=== PATIENT | male | born 1995 | race Caucasian/White ===

== ENCOUNTER 2022-05-07 20:10 | Observation (INO) | payer OTHER, SELFPAY ==
[2022-05-07 20:11] VITALS: BP 128/78; PULSE 73; RESP 11; TEMP 36.5; O2SAT 100; BMI 24.9
--- NOTE | 2022-05-07 20:26 | CT_ITS ---
STUDY: CT BRAIN WITHOUT CONTRAST REASON FOR EXAM: Male, 27 years old. Vertigo. Facial numbness. Numbness in the hands tonight. RADIATION DOSAGE (If Supplied By Facility): CTDIvol = ( 44.99 ) mGy, DLP = ( 846.73 ) mGycm TECHNIQUE: Transaxial CT imaging of the brain was performed without administration of intravenous contrast material. Individualized dose optimization techniques were used for this CT. COMPARISON: No relevant priors. FINDINGS: Normal soft tissue structures. Normal calvarium. Normal size ventricles and extra-axial spaces for the patient''s age. Normal white matter tracts of the cerebral hemispheres. Normal basal ganglia and thalami. Normal brainstem. Normal cerebellum. There is no intracranial hemorrhage. There are no findings of an acute ischemic infarction. Normal visualized paranasal sinuses. CT/Brain/Head without Contrast IMPRESSION: Normal unenhanced CT scan of the brain. If there is continued concern for acute stroke, MRI is recommended. [facility] was utilized to assist in identifying pertinent positive findings in this case. Electronically Signed: Alexis Birch DO at 20:54 EDT ,
--- NOTE | 2022-05-07 20:28 | EX.ED.DYSGE1 ---
HPI History of Present Illness Chief Complaint: Dizziness Informant: patient and spouse/S.O. Narrative Narrative: Patient evidently was walking around. He got a funny feeling. He started to feel lightheaded and mild dizziness. He did feel some spinning sensation. No chest pain or palpitations. He had mild nausea but never vomited. He states he laid down on the ground. He and his significant other stated he started real heavy fast breathing. This caused numbness in both hands and he actually had cramping in his hands. They were able to get him to calm down and it is gotten much better. He has minimal nausea now but no other symptoms. No visual complaints. No headache. No trauma. He has no history of anxiety but his significant other thought he might be having a panic attack by what she saw. But he has not had this before. He has not taken any medicines chemicals or different foods. He has been eating and drinking. He is on no medicines No allergies No history of chronic medical conditions PFSH PFS Medical History no medical history Home Medications meclizine 25 mg tablet 25 mg PO TID PRN dizziness #20 tabs 05/07/22 [Rx Last Taken Unknown] Allergy/AdvReac Type Severity Reaction Status Date / Time No Known Allergies Allergy Verified 05/07/22 20:16 Surgical History no surgical history Social History Smoking Status: Never smoker ROS ROS ED Constitutional Constitutional ED: Denies chills or fever(s) Eyes Eyes: Denies blurry vision, change in vision or diplopia ENT ENT ED: Denies rhinorrhea or sore throat Cardiovascular Cardiovascular: Denies chest pain, palpitations or racing heartbeat Respiratory/Chest Respiratory/Chest: Denies cough or dyspnea Gastrointestinal Gastrointestinal: Reports nausea; Denies abdominal pain or vomiting Genitourinary Genitourinary ED: Denies dysuria Musculoskeletal Musculoskeletal: Denies back pain or neck pain Integumentary Denies rash Neurologic Neurologic: Reports paresthesias; Denies headache(s) or weakness Psychiatric Psychiatric: Denies anxiety Endocrine Endocrinology: Denies polydipsia or polyuria Hematologic/Lymphatic Hematologic/Lymphatic: Denies easy bleeding or easy bruising Allergic/Immunologic Allergic/Immunologic ED: Denies urticaria EXAM Physical Exam Narrative Exam Narrative: Patient awake alert no acute distress. He is lying comfortably on the bed. He carries on normal conversation. HEENT shows mucous membranes do look reasonably moist. There is no facial trauma. No tenderness. Eyes have normal range of motion. No disconjugate gaze. No indication of positive Hallpike. Pupils are normal about 3 mm and reactive. Neck is supple. No stridor. No JVD. No meningismus. Lungs are completely clear and he takes good deep breaths without pain. No tenderness. Saturations are normal at 100% on room air showing no hypoxia. Heart is regular without murmur gallop rub or muffled tones. Peripheral pulses x4 are normal. Abdomen is soft and completely nontender. shows no CVA or suprapubic tenderness Extremities show normal pulses and coloration. No tenderness or asymmetry. Neurologically he is awake alert appropriate no acute distress. His NIH is 0. His strength coordination is normal. No visual cut. Normal facial strength. Const Vital Signs: 05/07/22 20:11 05/07/22 20:14 05/07/22 22:00 Temperature 97.7 F L Temperature Source Temporal Pulse Rate 73 68 Respiratory Rate 11 L 17 Respiratory Effort Normal Non-Labored Blood Pressure 128/78 H Blood Pressure Mean 94 Pulse Ox 100 100 Oxygen Delivery Method Room Air 05/07/22 22:01 05/07/22 23:01 Temperature Temperature Source Pulse Rate 82 70 Respiratory Rate 18 18 Respiratory Effort Blood Pressure 131/82 H 131/86 H Blood Pressure Mean 95 98 Pulse Ox 100 99 Oxygen Delivery Method MDM MDM MDM Narrative Medical decision making narrative: My independent interpretation the patient's CT of the head shows no acute process. Final reading is similar. Patient's blood work showed normal white count hemoglobin and platelets. Electrolytes did show decreased potassium. This was replaced orally. I think this is likely due to his hyperventilation episode. We checked the patient again. He feels better. But when he sits up he still gets a little bit of dizziness. He is not nauseated anymore. I did a David-Hallpike. When I have him tilt his head back and look to the right I lay him from a sitting to a laying position. This really did not produce any symptoms. Nor was there any nystagmus. I then sat him up. We let him sit for a moment. I had him tilt his head back into the left. He was not dizzy. When I laid him back he got a little bit of forward Garcia's nystagmus for about 4-5 beats, was vertiginous and then the symptoms resolved. I believe this is consistent with peripheral vertigo. I will give him some meclizine and he will be rechecked. About a half an hour after meclizine, patient was able to get up and side of the bed. He had some vertigo but it was not quite as bad. We will let him rest and try this again. He still not having any focal deficit. His symptoms exam risk factor all point to peripheral source of this. We got the patient up on the side of the bed again. You could see he had a little bit of rocking motion. He states that he does feel vertiginous. He has a true sense of spinning. Its not as bad as it was originally but it is still bad and it really has not improved from the last time. We did let him sit on the edge of the bed. He stated he started to feel nauseated. He was not syncopal or presyncopal. His heart rate was about 90 normal sinus rhythm with no abnormalities. He started to look a little bit pale. We laid him back. We will get him something for nausea. Lab Data Attestation: I reviewed the patient's lab results. Labs: Laboratory Results - last 24 hr 05/07/22 05/07/22 19:40 19:40 WBC 5.1 RBC 4.93 Hgb 15.8 Hct 42.7 MCV 86.6 MCH 32.0 MCHC 37.0 H RDW Std Deviation 36.5 RDW Coeff of Tierney 11.5 L Plt Count 178 MPV 11.3 Immature Gran % (Auto) 0.400 Neut % (Auto) 35.6 L Lymph % (Auto) 51.9 H O'Brien % (Auto) 11.1 H Eos % (Auto) 0.6 Baso % (Auto) 0.4 Absolute Neuts (auto) 1.8 L Absolute Lymphs (auto) 2.62 Nucleated RBC % 0 Sodium 143 Potassium 2.8 L Chloride 107 Carbon Dioxide 28.0 Anion Gap 8 BUN 15 Creatinine 1.07 Estim Creat Clear Calc 107.07 Est GFR (MDRD) Af Amer 106 Est GFR (MDRD) Non-Af 88 BUN/Creatinine Ratio 14.0 Glucose 103 Calcium 9.5 Radiography Diagnostic Testing: Clinical Impression(s) from Imaging Studies Brain CT 05/07/22 20:26 IMPRESSION: Normal unenhanced CT scan of the brain. If there is continued concern for acute stroke, MRI is recommended. [facility] was utilized to assist in identifying pertinent positive findings in this case. Electronically Signed: Alexis Birch at 20:54 EDT Reading Location ID and State: [address] [place] [address] Tel [phone], Service support , EKG Initial EKG: Comments: Independent interpretation of the patient's EKG done for vertigo and lightheadedness showing normal sinus rhythm with slight sinus arrhythmia which is typical in the young healthy heart. No ventricular ectopy. No acute ST elevation or depression. NC interval, QRS duration and QTc are normal. Management Discussion w/another healthcare provider: Hospitalist Discharge Plan Triage Chief Complaint: Dizziness ED Provider: Baron Dunn Dx/Rx/DC Orders Clinical Impression: Vertigo, Hyperventilation, Nausea Instructions: ED Vertigo, Unspecified Prescriptions: New meclizine 25 mg tablet 25 mg PO TID PRN (Reason: dizziness) Qty: 20 0RF Primary Care Provider: Care Physician,No Primary Referrals: NOT,DEFINED [Non-Staff] - Disposition Disposition: Acute Care Hospital [facility]
[2022-05-07] MEDS: Ondansetron 4 MG/2 ML Vial IV (20:31)
[2022-05-07] MEDS: 0.9% Normal Saline 1,000 ML 1000 ML IV (20:33)
[2022-05-07 20:45] LABS: Absolute Lymphocyte Count 2.62 X10^3/uL (0.83-4.51); Absolute Neutrophil Count 1.8 X10^3/uL (2.0-7.7); Basophil# 0.02 X10^3/uL; Basophil% 0.4 % (0-1); Eosinophil# 0.03 X10^3/uL; Eosinophils% 0.6 % (0-5); Hematocrit 42.7 % (40-54); Hemoglobin 15.8 g/dL (13.0-16.5); Lymphocyte # 2.62 X10^3/ul (0.83-4.51); Lymphocyte % 51.9 % (19-41); Mean Corpuscular Volume 86.6 fL (80-94); Mean Platelet Vol. 11.3 fl (6.2-12.0); Monocyte# 0.56 X10^3/uL; Monocyte% 11.1 % (0-10); NRBC Flagged by Analyzer 0 % (0-5); Neutrophil % 35.6 % (47-70); Platelet Count 178 K/mm3 (150-450); RBC Distribution Width CV 11.5 % (11.6-14.6); RBC Distribution Width SD 36.5 fl (35.1-43.9); Red Blood Count 4.93 M/mm3 (4.6-6.2); White Blood Count 5.1 K/mm3 (4.4-11.0)
[2022-05-07 21:03] LABS: Anion Gap 8 (5-15); BUN 15 mg/dL (7-18); Calcium,Total 9.5 mg/dL (8.5-10.1); Chloride 107 mmol/L (98-107); Creatinine, Serum 1.07 mg/dL (0.70-1.30); EST Glomerular Filtration Rate 88 mL/min (>60); Est Glom Filt Rate - Afr Amer 106 mL/min (>60); Estimated Creatinine Clearance 107.07 ml/min; Glucose 103 mg/dL (74-106); Potassium 2.8 mmol/L (3.5-5.1); Sodium Level 143 mmol/L (136-145)
[2022-05-07] MEDS: Potassium Chloride Oral Tablet 20 MEQ 40 MEQ PO (21:56)
[2022-05-07 22:00] VITALS: PULSE 68; RESP 17; O2SAT 100
[2022-05-07 22:01] VITALS: BP 131/82; PULSE 82; RESP 18; O2SAT 100
[2022-05-07] MEDS: Meclizine HCl 25 MG Tablet PO (22:54)
--- NOTE | 2022-05-07 22:59 | NURSING ---
Attempted to ambulate, pt was able to sit at side of bed, c/o dizziness. While sitting pt was wavering and felt he couldn't ambulate safely.
[2022-05-07 23:01] VITALS: BP 131/86; PULSE 70; RESP 18; O2SAT 99
[2022-05-08] VITALS (7 sets, daily range): BP systolic 109–122; BP diastolic 67–77; PULSE 65–130; RESP 16–18; TEMP 36.2–36.7; O2SAT 98–100; BMI 23.8
[2022-05-08] MEDS: diazePAM 2 MG Tablet PO ×4 (00:12→18:21)
[2022-05-08] MEDS: Ondansetron 4 MG/2 ML Vial IV (00:12)
--- NOTE | 2022-05-08 00:47 | HP.PCM_ITS ---
HPI - General General Date of Admission: 05/08/22 Date of Service: 05/08/22 Chief Complaint: Vertigo. HPI Narrative The patient is a 27 y/o M w/ no marked PMHx who presents to the [facility] ED on 05/08/22 with onset of lightheadedness and dizziness with a spinning sensation with associated nausea without emesis prompting him to lay on the ground with onset of tachypnea with eventual numbness in both his hands with eventual cramping and once he calmed down it seemed to improve with persistent nausea but no other recurrent symptoms nor any visual complaints or headache with a significant concern for panic attack but given the events prompted ED evaluation. In the ED patient per ED physician had no significant David-Hallpike findings but upon further testing demonstrated forward Garcia's nystagmus for approximately 4-5 beats with vertiginous symptoms consistent with peripheral vertigo. NIH stroke scale was 0. In the ED patient was administered oral potassium as well as trial of oral meclizine with reevaluation with some mild vertigo although abated from prior with no further focal deficits. Patient was reassessed again for possible discharge to home but had recurrent vertiginous symptoms with activity attempt with nausea. He has been recently working on his home. Reported carrying heavy items through the day. He notes when head toward the left he feels worse. He notes it started when he was initially bending over to set brushes down. Following recent Valium and Zofran patient does feel mildly improved and was able to get up with assistance to the bathroom. Upon further questioning he does report that prior he was not feeling well with congestion, headache, fevers but seem to improve. Work-up in the ED includ ed T97.7, heart rate 70, BP 120/71, respiratory rate 11, 100% on room air, CBC with WC 5.1, hemoglobin 15.8, platelet 178 with neutropenia, BMP with potassium 2.8 otherwise not marked appearing, CT brain with no acute intracranial findings, EKG with sinus rhythm with no acute evidence of ischemia. In the ED as noted patient ministered 1 L normal saline, potassium 40 mill equivalent p.o. x1, Zofran 4 mg IV x2, meclizine 25 mg p.o. x1 and most recently just prior to call for hospitalist admission Valium 2 mg p.o. x1. [facility] Medical History (Updated 05/08/22 @ 00:[address] Nusrat Pulido MD) No significant past medical history Medical History no medical history Allergy/AdvReac Type Severity Reaction Status Date / Time No Known Allergies Allergy Verified 05/07/22 20:16 other (Denies any marked maternal/paternal family history including HD, DM, CA.) Surgical History (Updated 05/08/22 @ 00:[address] Nusrat Pulido MD) No significant past surgical history Surgical History no surgical history Social History (Updated 05/08/22 @ 00:[address] Nusrat Pulido MD) household members: spouse Smoking Status: Never smoker alcohol intake: never substance use type: does not use ROS ROS Narrative Admission Review of Systems: CONSTITUTIONAL: No weight loss, fever, chills, + weakness or fatigue. HEENT: + Recent congestion, headache, rhinorrhea and sore throat currently resolved, now onset of vertiginous symptoms. Eyes: No visual loss, blurred vision, double vision or yellow sclerae. Ears, Nose, Throat: No hearing loss. SKIN: No rash or itching, lesions, wounds. CARDIOVASCULAR: No chest pain, chest pressure or chest discomfort, palpitations, edema, orthopnea, syncopal events. RESPIRATORY: No shortness of breath, cough or sputum, wheezing, hemoptysis. GASTROINTESTINAL: + anorexia, nausea without vomiting, No diarrhea, abdominal pain, melena, BRBPR. GENITOURINARY: No dysuria, frequency, urgency or retention. NEUROLOGICAL: + As noted prior week with headache/congestion symptoms, now resolved with onset Vertigo. No syncope, paralysis, ataxia, numbness or tingling in the extremities, focal weakness, change in bowel or bladder control, seizure. MUSCULOSKELETAL: No muscle, back pain, joint pain or stiffness. HEMATOLOGIC: No anemia, bleeding or bruising. LYMPHATICS: No enlarged nodes. No history of splenectomy. PSYCHIATRIC: No history of depression or anxiety. ENDOCRINOLOGIC: No reports of sweating, cold or heat intolerance. No polyuria or polydipsia. ALLERGIES: No history of asthma, hives, eczema or rhinitis. Vital Signs Vital Signs Vital Signs: 05/07/22 20:11 05/07/22 20:14 05/07/22 22:00 Temperature 97.7 F L Temperature Source Temporal Pulse Rate 73 68 Respiratory Rate 11 L 17 Respiratory Effort Normal Non-Labored Blood Pressure 128/78 H Blood Pressure Mean 94 Pulse Ox 100 100 Oxygen Delivery Method Room Air 05/07/22 22:01 05/07/22 23:01 Temperature Temperature Source Pulse Rate 82 70 Respiratory Rate 18 18 Respiratory Effort Blood Pressure 131/82 H 131/86 H Blood Pressure Mean 95 98 Pulse Ox 100 99 Oxygen Delivery Method Weight Weight: 173 lb 8.061 oz Body Mass Index (BMI) 24.9 Physical Exam Narrative Physical Examination: General: Awake, alert, oriented x 3 and cooperative, laying in the ED bed, fatigued, notes feeling somewhat improved, recently was able to with assistance walk to and from the bathroom Skin: Normal color, normal turgor, no icterus, no cyanosis. HEENT: AT/NC, EOMI, PERRLA, dry MM, no carotid bruits or JVD noted no visible reproduce nystagmus. Lungs: CTA bilaterally, moderate effort, mild decrease BL bases, no rales, ronchi or wheezing. Heart: Improved, currently regular rate and rhythm; no gallop, rub audible. Abdomen: Soft, NTTP, ND, normal BS, no HSM. Extremities: No cyanosis, clubbing, or edema. Neurological: Patient awake, alert, oriented as noted, cognitive function intact; pupils equally reactive to light and accommodation, cranial nerves II- XII grossly normal, moving all 4 extremities, no focal deficits, strength moderately to severely global decreased but improving, currently no reproducible nystagmus with positional changes but had been with primarily turning to the left Psychiatric: Affect appears fatigued, no acute evidence of depressive or anxiety feelings. Results Lab / Micro Data Result Diagrams: 05/07/22 19:40 05/07/22 19:40 Labs: Laboratory Results - last 24 hr 05/07/22 19:40: WBC 5.1, RBC 4.93, Hgb 15.8, Hct 42.7, MCV 86.6, MCH 32.0, MCHC 37.0 H, RDW Std Deviation 36.5, RDW Coeff of Tierney 11.5 L, Plt Count 178, MPV 11.3, Immature Gran % (Auto) 0.400, Neut % (Auto) 35.6 L, Lymph % (Auto) 51.9 H, Harmon % (Auto) 11.1 H, Eos % (Auto) 0.6, Baso % (Auto) 0.4, Absolute Neuts (auto) 1.8 L, Absolute Lymphs (auto) 2.62, Nucleated RBC % 0 05/07/22 19:40: Sodium 143, Potassium 2.8 L, Chloride 107, Carbon Dioxide 28.0, Anion Gap 8, BUN 15, Creatinine 1.07, Estim Creat Clear Calc 107.07, Est GFR (MDRD) Af Amer 106, Est GFR (MDRD) Non-Af 88, BUN/Creatinine Ratio 14.0, Glucose 103, Calcium 9.[address] 05/07/22 20:26 IMPRESSION: Normal unenhanced CT scan of the brain. If there is continued concern for acute stroke, MRI is recommended. [facility] was utilized to assist in identifying pertinent positive findings in this case. Electronically Signed: Alexis Birch DO at 20:54 EDT Reading Location ID and State: [address] [place] [address] Tel [phone], Service support , Assessment & Plan Assessment/Plan (1) Vertigo: PLAN: Plan The patient is a 27 y/o M w/ no marked PMHx who presents to the [facility] ED on 05/08/22 with onset of lightheadedness and dizziness with a spinning sensation with associated nausea without emesis prompting him to lay on the ground with onset of tachypnea with eventual numbness in both his hands with eventual cramping and once he calmed down it seemed to improve with persistent nausea but no other recurrent symptoms nor any visual complaints or headache with a significant concern for panic attack but given the events prompted ED evaluation. #1. Acute vertigo, suspected benign positional vertigo with suspected recent Acute Viral Syndrome: We will admit to medical surgical floor, maintain on fall precautions, although meclizine did have some improvement given ongoing symptoms will trial scheduled Valium, will continue to judiciously hydrate, as needed antiemetic, PT will be consulted for evaluation and vestibular therapy consideration, if symptoms are ongoing low threshold to obtain MRI of the brain to be cautious. Given recent viral type symptoms will request COVID PCR/respiratory viral panel given length of timeline since symptoms as suspect likely etiology for his current vertiginous symptoms. #2. Hypokalemia: Admission K+ 2.8, magnesium level request, supplementation given, repeat level in AM. #3. Neutropenia, unclear etiology, suspect related with recent acute viral syndrome: We will repeat CBC with differential in AM, unclear if this is chronic as no prior trending noted, COVID PCR requested. #4. DVT prophylaxis: Low risk. Admission Evaluation Time spent evaluating chart, patient history, patient evaluation, care planning and discussion with specialists: 55 minutes. Charges/Coding Visit Charges Inpatient E&M: 44495 Init Hosp L2
[2022-05-08 01:04] LABS: Amphetamine Urine VISTA NEGATIVE (<1000 ng/mL); Barbiturate Urine VISTA NEGATIVE (< 200 ng/mL); Benzodiazepine Urine VISTA NEGATIVE (< 200 ng/mL); Cocaine Urine VISTA NEGATIVE (< 300 ng/mL); Ecstacy Urine VISTA NEGATIVE (< 500 ng/mL); Methadone Urine VISTA NEGATIVE (< 300 ng/mL); PCP Urine VISTA NEGATIVE (< 25 ng/mL); THC Urine VISTA NEGATIVE (< 50 ng/mL); Vista UDS pH Range 7
[2022-05-08] MEDS: 0.9% Saline Lock 10 ML Syringe IV ×2 (02:15→08:18)
[2022-05-08] MEDS: 0.9% Normal Saline 1,000 ML 150 ML IV ×4 (02:16→20:38)
[2022-05-08 07:11] LABS: Absolute Lymphocyte Count 1.57 X10^3/uL (0.83-4.51); Absolute Neutrophil Count 2.7 X10^3/uL (2.0-7.7); Basophil# 0.01 X10^3/uL; Basophil% 0.2 % (0-1); Eosinophil# 0.02 X10^3/uL; Eosinophils% 0.4 % (0-5); Hematocrit 38.4 % (40-54); Hemoglobin 13.9 g/dL (13.0-16.5); Lymphocyte # 1.57 X10^3/ul (0.83-4.51); Lymphocyte % 32.9 % (19-41); Mean Corp Hgb Conc 36.2 g/dL (32-36); Mean Corpuscular Hgb 32.5 pg (27.0-32.0); Mean Corpuscular Volume 89.7 fL (80-94); Mean Platelet Vol. 11.4 fl (6.2-12.0); Monocyte# 0.47 X10^3/uL; Monocyte% 9.9 % (0-10); NRBC Flagged by Analyzer 0 % (0-5); Neutrophil # 2.68 X10^3/uL (2.7-7.7); Neutrophil % 56.2 % (47-70); Platelet Count 144 K/mm3 (150-450); RBC Distribution Width CV 11.9 % (11.6-14.6); RBC Distribution Width SD 38.5 fl (35.1-43.9); Red Blood Count 4.28 M/mm3 (4.6-6.2); White Blood Count 4.8 K/mm3 (4.4-11.0)
--- NOTE | 2022-05-08 07:33 | PN.HOSP_ITS ---
Reason for Visit Reason for Visit: Diagnoses Dizziness and giddiness (05/08/22) Subjective Subjective Patient is a 27-year-old gentleman in relatively good health who presented with acute vertigo Objective Data Objective Data Vital Signs: Vital Signs Temp Pulse Resp BP Pulse Ox O2 Del Method 97.2 F L 67 18 118/76 100 Room Air 05/08/22 02:23 05/08/22 02:23 05/08/22 02:23 05/08/22 02:23 05/08/22 02:23 05/08/22 02:23 Oxygen Delivery Method Room Air Weight: 75.3 kg Body Mass Index (BMI) 23.8 Intake & Output: Intake and Output for Last 24 Hours 05/06/22 05/07/22 05/08/22 23:59 23:59 23:59 Intake Total 1000 / 1000 300 / 300 Output Total 600 / 600 Balance 1000 / 1000 -300 / -300 Lab / Micro Data Result Diagrams: 05/08/22 06:11 05/08/22 06:11 Labs: Laboratory Results - last 24 hr 05/07/22 19:40: WBC 5.1, RBC 4.93, Hgb 15.8, Hct 42.7, MCV 86.6, MCH 32.0, MCHC 37.0 H, RDW Std Deviation 36.5, RDW Coeff of Tierney 11.5 L, Plt Count 178, MPV 11.3, Immature Gran % (Auto) 0.400, Neut % (Auto) 35.6 L, Lymph % (Auto) 51.9 H, [place] % (Auto) 11.1 H, Eos % (Auto) 0.6, Baso % (Auto) 0.4, Absolute Neuts (auto) 1.8 L, Absolute Lymphs (auto) 2.62, Nucleated RBC % 0 05/07/22 19:40: Sodium 143, Potassium 2.8 L, Chloride 107, Carbon Dioxide 28.0, Anion Gap 8, BUN 15, Creatinine 1.07, Estim Creat Clear Calc 107.07, Est GFR (MDRD) Af Amer 106, Est GFR (MDRD) Non-Af 88, BUN/Creatinine Ratio 14.0, Glucose 103, Calcium 9.5 05/07/22 19:40: Magnesium 2.0 05/08/22 00:50: Urine Opiates Screen NEGATIVE, Urine Methadone Screen NEGATIVE, Ur Barbiturates Screen NEGATIVE, Ur Phencyclidine Scrn NEGATIVE, Ur Amphetamines Screen NEGATIVE, MDMA (Ecstasy) Screen NEGATIVE, U Benzodiazepines Scrn NEGATIVE, Urine Cocaine Screen NEGATIVE, U Cannabinoids Screen NEGATIVE, Ur Drug Screen Comment 05/08/22 01:03: COVID-19 (ELIO) Detected 05/08/22 06:11: WBC 4.8, RBC 4.28 L, Hgb 13.9, Hct 38.4 L, MCV 89.7, MCH 32.5 H, MCHC 36.2 H, RDW Std Deviation 38.5, RDW Coeff of Tierney 11.9, Plt Count 144 L, MPV 11.4, Immature Gran % (Auto) 0.400, Neut % (Auto) 56.2, Lymph % (Auto) 32.9, [place] % (Auto) 9.9, Eos % (Auto) 0.4, Baso % (Auto) 0.2, Absolute Neuts (auto) 2.7, Absolute Lymphs (auto) 1.57, Nucleated RBC % 0 Micro: Microbiology 05/08/22 01:00 Mucosa - Nasopharyngeal Respiratory Panel (PCR) - Final Radiography Diagnostic Testing: Radiology Impression Brain CT 05/07/22 20:26 IMPRESSION: Normal unenhanced CT scan of the brain. If there is continued concern for acute stroke, MRI is recommended. [facility] was utilized to assist in identifying pertinent positive findings in this case. Electronically Signed: Alexis Birch DO at 20:54 EDT Reading Location ID and State: [address] [place] [address] Tel [phone], Service support , Physical Exam Narrative GENERAL: cooperative HEENT: Atraumatic; normocephalic EYES; Anicteric, Normal Conjunctiva NECK; supple, normal thyroid, RESPIRATORY: Diminished to auscultation CARDIOVASCULAR: Regular S1 S2, GI: soft, normoactive bowel sounds, : No Renal angle tenderness; EXTREMITIES: No edema, no clubbing, MUSCULOSKELETAL: no muscle wasting NEURO: Awake; no lateralizing signs. SKIN: No Rash PSYCH; Flat affect Assessment & Plan Assessment/Plan (1) Vertigo: PLAN: Plan Patient is a 27-year-old gentleman in relatively good health who presented with acute vertigo 1. Acute vertigo ? Suspected to be secondary to BPPV plan is to treat symptomatically 2. Acute COVID-19 infection ? Patient currently remains asymptomatic we will monitor in addition to patient being placed in contact and droplet isolation 3. Hypokalemia ? Corrected per protocol repeat labs ordered for a.m. 4. DVT prophylaxis ? Low risk, encouraging ambulation Time spent in the patient's overall evaluation,decision-making process, review of diagnostic data, adjustment of management, discussion with other providers, nursing nursing and ancillary staff involved in patient's care documentation, 35 Minutes Charges/Coding Visit Charges Inpatient E&M: 67216 Subs Hosp L2
[2022-05-08 07:35] LABS: ALB/GLOB Ratio 1.3 RATIO (0.9-2.4); AST(SGOT) 45 U/L (15-37); Alanine Aminotransfer ALT/SGPT 106 U/L (16-61); Albumin, Serum 3.4 g/dL (3.2-5.0); Alkaline Phosphatase 37 U/L (45-117); Anion Gap 5 (5-15); BUN 10 mg/dL (7-18); BUN/Creat Ratio 12.4 RATIO (10-20); Calcium,Total 8.3 mg/dL (8.5-10.1); Chloride 110 mmol/L (98-107); Creatinine, Serum 0.81 mg/dL (0.70-1.30); EST Glomerular Filtration Rate 121 mL/min (>60); Est Glom Filt Rate - Afr Amer 147 mL/min (>60); Estimated Creatinine Clearance 141.44 ml/min; Globulin 2.6 g/dL (2.2-4.2); Glucose 127 mg/dL (74-106); Potassium 4.5 mmol/L (3.5-5.1); Sodium Level 141 mmol/L (136-145)
[2022-05-08 07:44] LABS: Procalcitonin 0.04 ng/mL (0.00-0.09)
[2022-05-08 07:45] LABS: BNP,B-Type NATRIURETIC PEPTIDE 17.6 pg/mL (0-100); CRP < 2.90 mg/L (0.0-3.0); Ferritin 2205 ng/mL (26-388); LDH 203 U/L (87-241)
[2022-05-08] MEDS: Famotidine 20 MG Tablet PO ×2 (08:18→20:38)
[2022-05-08 08:26] LABS: D-Dimer Quantitative (DVT/PE) < 0.27 FEU/ug/m (0.27-0.49)
--- NOTE | 2022-05-08 21:15 | NURSING ---
This nurse assumed care of patient at 2114.
[2022-05-09] MEDS: diazePAM 2 MG Tablet PO ×2 (00:56→05:54)
[2022-05-09 00:57] VITALS: BP 110/69; PULSE 74; RESP 16; TEMP 36.3; O2SAT 98
[2022-05-09] MEDS: 0.9% Normal Saline 1,000 ML 150 ML IV (03:19)
[2022-05-09 05:52] VITALS: BP 110/70; PULSE 84; RESP 16; TEMP 36.6; O2SAT 95
[2022-05-09 07:25] VITALS: O2SAT 95
--- NOTE | 2022-05-09 07:41 | PCM.DC.SUM ---
Providers Date of Admission: 05/08/22 Date of Discharge: 05/09/22 Primary Care Physician: No Primary Care Phys Reason For Visit: VERTIGO Diagnosis Discharge Diagnosis (1) Vertigo: Status: Acute Code(s): R42 - Dizziness and giddiness Plan Patient is a 27-year-old gentleman in relatively good health who presented with acute vertigo 1. Acute vertigo ? Suspected to be secondary to BPPV plan is to treat symptomatically 2. Acute COVID-19 infection ? Patient currently remains asymptomatic we will monitor in addition to patient being placed in contact and droplet isolation 3. Hypokalemia ? Corrected per protocol repeat labs ordered for a.m. 4. DVT prophylaxis ? Low risk, encouraging ambulation Time spent in the patient's overall evaluation,decision-making process, review of diagnostic data, adjustment of management, discussion with other providers, nursing nursing and ancillary staff involved in patient's care documentation, 35 Minutes Medications at Discharge Home Medications NK 05/08/22 Physical Exam Narrative GENERAL: cooperative HEENT: Atraumatic; normocephalic EYES; Anicteric, Normal Conjunctiva NECK; supple, normal thyroid, RESPIRATORY: Diminished to auscultation CARDIOVASCULAR: Regular S1 S2, GI: soft, normoactive bowel sounds, : No Renal angle tenderness; EXTREMITIES: No edema, no clubbing, MUSCULOSKELETAL: no muscle wasting NEURO: Awake; no lateralizing signs. SKIN: No Rash PSYCH; Flat affect Weight / BMI Weight Weight: 75.3 kg Body Mass Index (BMI) 23.8 ABG / Lab / Microbiology Data Result Diagrams: 05/08/22 06:11 05/08/22 06:11 Laboratory: Laboratory Results - last 24 hr 05/08/22 06:11: B-Natriuretic Peptide 17.6 05/08/22 06:11: Procalcitonin 0.04 05/08/22 06:11: D-Dimer Quant (PE/DVT) < 0.27 L 05/08/22 06:11: Ferritin 2205 H, Lactate Dehydrogenase 203, C-React Prot Ext Range < 2.90 Microbiology: Microbiology 05/08/22 01:00 Mucosa - Nasopharyngeal Respiratory Panel (PCR) - Final D/C Instructions Discharge Diet: No restrictions Call your doctor if you observe: Fever of 101 or Higher, Shortness of breath, Fainting spells and Chest pain Additional Dressing/Incision Instructions: Patient to isolate for total of 10 days from the onset of symptoms Meaningful Use Info Meaningful Use Diagnoses (Choose all that apply): None applicable Discharge Plan Admission Admit Date/Time: 05/08/22 00:20 Attending Provider: Brian Young Primary Care Provider: Care Physician,No Primary Consulting Providers: Nusrat Pulido Instructions Patient Instructions: ED Vertigo, Unspecified Discharge Orders/Prescriptions Prescriptions: No Action NK Referrals / Follow Up: Care Physician,No Primary [Primary Care Provider] - NOT,DEFINED [Non-Staff] - Disposition Disposition (needs filled in before D/C Order can be placed): Home, Self Care
[2022-05-09 07:54] LABS: Cholesterol 84 mg/dL (200); High Density Lipoprotein 35 mg/dL; Triglycerides 36 mg/dL; Very Low Density Lipoprotein 7 mg/dL (5-40)
[2022-05-09 10:36] VITALS: BP 121/78; PULSE 70; RESP 16; TEMP 36.7; O2SAT 100
== END 2022-05-09 10:45 | disposition home or self-care (01) ==
LOC: ED 05-08 00:23 → MS3 05-08 02:01
PROVIDERS: Admitting Provider Family Medicine; Emergency Provider Emergency Medicine; Visit Provider Internal Medicine
DX: R42 Dizziness and giddiness (principal); D70.9 Neutropenia, unspecified; U07.1 COVID-19; R06.82 Tachypnea, not elsewhere classified; R06.4 Hyperventilation
CPT/HCPCS: 99285; 36415; 70450; 80048; 80053; 80061; 80307; 82728; 83615; 83735; 83880; 84145; 85025; 85379; 86140; 87633; 87635; 93005; 96361; 96374; 96375; 99221; J7030; A4216; G0378; J2405; U0003; U0005